=== PATIENT | female | born 1955 | race African-American/Black ===

== ENCOUNTER 2017-08-05 19:34 | Emergency (ER) | payer OTHER ==
[~2017-08-05] VITALS: Ht 162.6 cm; Wt 67.1 kg
[2017-08-05 19:36] VITALS: BP 157/99
[2017-08-05] MEDS ORDERED: MAXZIDE-25 MG1 EACH PO (19:44)
[2017-08-05] MEDS ORDERED: ASPIR 8181 MG PO (19:45)
[2017-08-05] MEDS ORDERED: METFORMIN HCL500 MG PO (19:45)
[2017-08-05] MEDS ORDERED: LIPITOR10 MG PO (19:45)
[2017-08-05] MEDS ORDERED: BIOTIN1 MG PO (19:46)
== END 2017-08-05 20:22 | disposition home or self-care (01) ==
LOC: ER 19:34
DX: S61.210A Laceration without foreign body of right index finger without damage to nail, initial encounter (principal); I10 Essential (primary) hypertension; E78.5 Hyperlipidemia, unspecified; W29.0XXA Contact with powered kitchen appliance, initial encounter; Y93.89 Activity, other specified; Y92.89 Other specified places as the place of occurrence of the external cause; Y99.8 Other external cause status

== ENCOUNTER 2020-03-24 01:35 | Emergency (ER) | payer OTHER ==
[~2020-03-24] VITALS: Ht 160 cm; Wt 65.3 kg
--- NOTE | ~2020-03-24 | EKG ---
[facility] [place] [address] ELECTROCARDIOGRAM REPORT Name: MARY BURT Room #: [facility]#: [id number] Admission: 03/24/20 Attend Phys: Discharge: 03/24/20 Date of : 57 Report #: [id number] THIS REPORT FOR: cc: Dereck Lopez MD, [place] S. MD Epiphany, Epiphany MD ~ THIS REPORT FOR: //name// [facility] ED Test Date: 2020-03-24 Test Time: 01:41:01 Pat Name: MARY BURT Department: Room: Gender: F Algebra Teacher: jv : 1955 Requested By: Cristhian Guzmán Order Number: [id number] MD: Measurements Intervals [place] Rate: 97 P: 73 [place]: 141 QRS: 18 QRSD: 95 T: 31 QT: 348 QTc: 442 Interpretive Statements Sinus rhythm LAE, consider biatrial enlargement Minimal ST elevation, anterior leads No previous ECG available for comparison [email or web address] By: 0141 0141 Epiphany EpiphanyMD /EPI
[~2020-03-24 01:35] MED LIST: ASPIR 8181 MG PO; BIOTIN1 MG PO; LIPITOR10 MG PO; MAXZIDE-25 MG1 EACH PO; METFORMIN HCL500 MG PO
[2020-03-24] MEDS ORDERED: LISINOPRIL2.5 MG PO (02:02)
[2020-03-24 02:14] LABS: ABSOLUTE NEUTROPHILS 5.4 thou/uL (1.4-8.2); BASOPHILS 1.1 % (0.0-2.0); EOSINOPHILS 0.6 % (0.0-3.0); HEMATOCRIT 40.3 % (37.0-47.0); HEMOGLOBIN 13.3 gm/dL (12.0-15.0); LYMPHOCYTES 35.7 % (24.0-44.0); MCH 30.1 pg (26.0-34.0); MCHC 32.9 g/dL (28.0-37.0); MCV 91.4 fL (80.0-100.0); PLATELET COUNT 355 thou/uL (150-400); POLYS 52.6 % (36.0-66.0); RDW 13.6 % (10.5-14.5); WBC 10.3 thou/uL (4.0-11.0)
[2020-03-24 02:27] LABS: ANION GAP 8 mmol/L (7-16); BUN 20 mg/dL (7-18); CALCIUM 9.6 mg/dL (8.5-10.1); CHLORIDE 103 mmol/L (98-107); CO2 31 mmol/L (21-32); CREATININE 0.9 mg/dL (0.6-1.0); GLUCOSE 122 mg/dL (74-106); POTASSIUM 3.8 mmol/L (3.5-5.1); SODIUM 142 mmol/L (136-145)
[2020-03-24 02:37] LABS: LIPASE 191 U/L (73-393); SGOT 24 U/L (15-37); SGPT 18 U/L (30-65); TOTAL BILIRUBIN 0.5 mg/dL (0.2-1.0); TOTAL PROTEIN 7.7 g/dL (6.4-8.2); TROPONIN-I <0.06 ng/mL (<0.06)
[2020-03-24] MEDS ORDERED: ACID CONTROLLER20 MG PO (05:59)
[2020-03-24 06:15] VITALS: BP 120/75
--- NOTE | 2020-03-24 09:17 | EKG ---
[facility] [place] [address] ELECTROCARDIOGRAM REPORT Name: MARY BURT Room #: [facility]#: [id number] Admission: 03/24/20 Attend Phys: Discharge: 03/24/20 Date of : 57 Report #: [id number] THIS REPORT FOR: cc: Dereck Lopez MD, [place] S. MD Lundgren, Craig H. 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1955 Requested By: Cristhian Guzmán Order Number: [id number] MD: William Chavez Measurements Intervals [place] Rate: 93 P: 68 [place]: 150 QRS: 6 QRSD: 82 T: 29 QT: 352 QTc: 438 Interpretive Statements Sinus rhythm Small inferior Q waves No previous ECG available for comparison Electronically Signed On 03-24-2020 9:17:16 CDT by William Chavez [email or web address] <ELECTRONICALLY SIGNED> By: William Chavez MD, [facility] 03/24/20 0917 0142 1 William Chavez MD, [facility] /EPI
== END 2020-03-24 06:10 | disposition home or self-care (01) ==
LOC: ER 01:35
PROVIDERS: Emergency Medicine
DX: R07.89 Other chest pain (principal); I10 Essential (primary) hypertension; E78.5 Hyperlipidemia, unspecified; E11.9 Type 2 diabetes mellitus without complications; Z79.82 Long term (current) use of aspirin; Z79.899 Other long term (current) drug therapy